=== PATIENT | female | born 1940 | race Hispanic/Latino ===

== ENCOUNTER 2019-07-11 17:17 | Inpatient (IN) | payer OTHER ==
[~2019-07-11] VITALS: Ht 154.9 cm; Wt 61.0 kg
[~2019-07-11 17:17] MED LIST: ALENDRONATE SOD70 MG PO; AMLODIPINE PO; ARICEPT5 MG PO; IBUPROFEN400 MG PO; LEVOTHYROXINE PO; LEVOTHYROXINE25 MCG PO; LISINOPRIL PO; LISINOPRIL40 MG PO; LOVASTATIN20 MG PO; OMEPRAZOLE40 MG PO
--- OUTSIDE RECORDS SUMMARY | 2019-07-11 17:20 | XMS REPORT ---
Author Author [facility] Address Unknown Phone Unavailable Care Team Providers Care Soda Fountain Operator Name Role Phone HORTENSIA Lance ERICA Unavailable Unavailable Problems This patient has no known problems. Allergies, Adverse Reactions, Alerts This patient has no known allergies or adverse reactions. Medications This patient has no known medications. Results Test Description Test Time Test Comments Text Results Atomic Results Result Comments CT ABDOMEN/PELVIS W [place] [id number] [place] [address] Patient Name: JIMBO RODRIGUEZ MR #: [id number] : 1940 Age/Sex: 76/F Req #: [id number] Adm Physician: Ordered by: YUN RAUSCH Report #: [id number] Location: ER Room/Bed: Procedure: [id number] CT/CT ABDOMEN/PELVIS W Exam Date: 07/02/17 Exam Time: 1640 REPORT STATUS: Signed EXAM: CT Abdomen and Pelvis WITH contrast INDICATION: Blood in stool, vomiting COMPARISON: None. TECHNIQUE: Abdomen and pelvis were scanned utilizing a multidetector helical scanner from the lung base to the pubic symphysis after administration of IV contrast. Coronal and sagittal reformations were obtained. Routine protocol was performed. Scan was performed when during portal venous phase. IV CONTRAST: 100 mL of Isovue-370 ORAL CONTRAST: Gastrografin RADIATION DOSE: Total DLP: 533.8 mGy*cm Estimated effective dose: (DLP x 0.015 x size factor) mSv COMPLICATIONS: None FINDINGS: LINES and TUBES: None. LOWER THORAX: The visualized lung bases are clear. Calcifications of the mitral annulus. Linear hypodensity within the left ventricle apex suggestive of prior myocardial injury. HEPATOBILIARY: Stable few 4 to 7 mm dense cystic lesions throughout the liver . No biliary ductal dilation. GALLBLADDER: Surgically absent. SPLEEN: No splenomegaly. PANCREAS: No focal masses or ductal dilatation. ADRENALS: No adrenal nodules KIDNEYS/URETERS: Kidneys enhance symmetrically. No hydronephrosis. No cystic or solid mass lesions. No stones. GI TRACT: Limited evaluation of the bowel due to motion artifact. Extensive diverticulosis of the sigmoid colon without surrounding fat stranding, better seen on coronal view. No bowel dilatation or obstruction The rectum contains large amount of fecal material and appears distended measuring 7.6 cm in transverse diameter and associated with mild circumferential wall thickening. PELVIC ORGANS/BLADDER: Unremarkable. LYMPH NODES: No lymphadenopathy. VESSELS: Scattered atherosclerotic calcifications of the abdominal aorta. PERITONEUM / RETROPERITONEUM: No free air or fluid. BONES: Mild multilevel degenerative changes of the lumbar spine. SOFT TISSUES: Unremarkable. IMPRESSION: Large amount of retained feces in the rectum, which is mildly distended and associated with mild wall thickening suggestive of fecal impaction. Limited evaluation of the bowel due to motion artifact. Extensive diverticulosis of the sigmoid colon without surrounding fat stranding, better seen on coronal view, unchanged. No fluid collections or fat stranding in the peritoneal fat. Signed by: Dr. Caitie Caruso M.D. on 07/02/2017 6:30 PM Dictated By: CAITIE CARUSO MD 29 Transcribed By: ADALBERTO on 07/02/171829 COPY TO: YUN RAUSCH CHEST SINGLE (PORTABLE) [place] [address] Patient Name: JIMBO RODRIGUEZ MR #: [id number] : 1940 Age/Sex: 76/F Req #: [id number] Adm Physician: Ordered by: YUN RAUSCH Report #: [id number] Location: ER Room/Bed: Procedure: [id number] DX/CHEST SINGLE (PORTABLE) Exam Date: 07/02/17 Exam Time: 5 REPORT STATUS: Signed EXAMINATION: CHEST SINGLE (PORTABLE) INDICATION: COMPARISON: None FINDINGS: AP view TUBES and LINES: None. LUNGS: Lungs are well inflated. Lungs are clear. There is no evidence of pneumonia or pulmonary edema. PLEURA: No pleural effusion or pneumothorax. HEART AND MEDIASTINUM: Mild enlargement of the cardiac silhouette. Atherosclerotic calcifications of the aortic arch. BONES AND SOFT TISSUES: No acute osseous lesion. Soft tissues are unremarkable. UPPER ABDOMEN: No free air under the diaphragm. IMPRESSION: No acute thoracic abnormality. Signed by: Dr. Caitie Caruso M.D. on 07/02/2017 1:56 PM Dictated By: CAITIE CARUSO MD 135 Transcribed By: ADALBERTO on 07/02/17 1356 COPY TO: YUN RAUSCH
[2019-07-11 18:01] LABS: BASOPHILS % 0.2 % (0.0-1.0); EOSINOPHILS # (AUTO) 0.1 (0.0-0.4); EOSINOPHILS % 0.5 % (0.0-6.0); HEMATOCRIT 38.1 % (34.2-44.1); HEMOGLOBIN 12.9 g/dL (12.0-16.0); LYMPHOCYTES # (AUTO) 1.9 (1.0-3.2); LYMPHOCYTES % 20.6 % (18.0-39.1); MEAN CORPUSCULAR HGB CONC 33.9 g/dL (31-35); MEAN CORPUSCULAR VOLUME 88.6 fL (81-99); MONOCYTES # (AUTO) 0.8 (0.2-0.8); NEUTROPHILS # (AUTO) 6.5 (2.1-6.9); NEUTROPHILS % 69.5 % (38.7-80.0); PLATELET COUNT 316 x10e3/uL (140-360); RED CELL DISTRIBUTION WIDTH 13.4 % (11.7-14.4)
[2019-07-11 18:19] LABS: ALANINE AMINOTRANSFERASE 10 IU/L (0-55); ALBUMIN 3.2 g/dL (3.5-5.0); ALKALINE PHOSPHATASE 108 IU/L (40-150); ANION GAP 10.8 mmol/L (8-16); BLOOD UREA NITROGEN 8 mg/dL (7-26); BUN/CREATININE RATIO 10 (6-25); CARBON DIOXIDE 22 mmol/L (22-29); CHLORIDE 105 mmol/L (98-107); CREATININE, SERUM 0.78 mg/dL (0.57-1.11); EST GLOMERULAR FILTRATION RATE > 60 ML/MIN (60-); GLUCOSE 88 mg/dL (74-118); POTASSIUM 3.8 mmol/L (3.5-5.1); SODIUM 134 mmol/L (136-145)
--- NOTE | 2019-07-11 20:02 | Diagnostic Imaging Report ---
EXAM: CT Abdomen and Pelvis WITH contrast INDICATION: ^diarrhea ^[id number] ^1905 COMPARISON: CT abdomen pelvis 07/02/2017 TECHNIQUE: Abdomen and pelvis were scanned utilizing a multidetector helical scanner from the lung base to the pubic symphysis after administration of IV contrast. Coronal and sagittal reformations were obtained. Routine protocol was performed. Scan was performed when during portal venous phase. IV CONTRAST: 100 mL of Isovue-370 ORAL CONTRAST: Water RADIATION DOSE: Total DLP: 227 mGy*cm Estimated effective dose: (DLP x 0.015 x size factor) mSv COMPLICATIONS: None FINDINGS: LINES and TUBES: None. LOWER THORAX: The visualized lung bases are clear. Calcifications of the mitral annulus, unchanged. Linear hypodensity within the left ventricle apex suggestive of prior myocardial injury, unchanged. HEPATOBILIARY: Stable few 4 to 7 mm dense cystic lesions throughout the liver . No biliary ductal dilation. GALLBLADDER: Surgically absent. SPLEEN: No splenomegaly. PANCREAS: No focal masses or ductal dilatation. ADRENALS: No adrenal nodules KIDNEYS/URETERS: Kidneys enhance symmetrically. No hydronephrosis. No cystic or solid mass lesions. No stones. GI TRACT: Limited evaluation of the bowel due to motion artifact. Extensive diverticulosis of the sigmoid colon without surrounding fat stranding, better seen on coronal view. No bowel dilatation or obstruction. Worsening circumferential wall thickening of the rectum. PELVIC ORGANS/BLADDER: Severe distention of the urinary bladder is unchanged since prior exam. No calcified stones in the urinary bladder or ureters. There is mild prominence of the proximal left ureter, unchanged. LYMPH NODES: No lymphadenopathy. VESSELS: Scattered atherosclerotic calcifications of the abdominal aorta. PERITONEUM / RETROPERITONEUM: No free air or fluid. BONES: Mild multilevel degenerative changes of the lumbar spine. SOFT TISSUES: Unremarkable. IMPRESSION: Worsening circumferential wall thickening of the rectum may be inflammatory, infectious, or neoplastic. Recommend direct visualization. Unchanged diffuse diverticulosis of the sigmoid colon without diverticulitis. Signed by: Dr. [place] Caruso M.D. on 07/11/2019 7:59 PM
[2019-07-11 20:50] LABS: BILIRUBIN,URINE NEGATIVE (NEGATIVE); CLARITY,URINE CLEAR (CLEAR); COLOR,URINE YELLOW (YELLOW); KETONES,URINE NEGATIVE (NEGATIVE); LEUKOCYTE ESTERASE ,URINE SMALL (NEGATIVE); NITRITE,URINE NEGATIVE (NEGATIVE); PROTEIN,URINE DIPSTICK NEGATIVE (NEGATIVE); URINE UROBILINOGEN 0.2 mg/dL (0.2 - 1)
[2019-07-11] MEDS ORDERED: LEVOFLOXACIN 500MG/D5W 100ML IV SCH (21:00)
[2019-07-11] MEDS ORDERED: ONDANSETRON HCL INJ 2MG/ML 2ML 2 MG/ML VIAL IV PRN (21:00)
[2019-07-11 21:04] LABS: WBC,URINE (MAN) 0-5 /HPF (0-5)
[2019-07-11] MEDS ORDERED: IOPAMIDOL 370 MG/ML 200 ML INFUS..BTL INJ ONE (21:07)
[2019-07-11] MEDS ORDERED: SODIUM CHLORIDE 0.9% 50ML 50 ML ONE (21:07)
[2019-07-11] MEDS: SODIUM CHLORIDE 0.9% 1000ML 1,000 ML IV SCH (23:00)
[2019-07-11] MEDS: METRONIDAZOLE 500MG/NS 100ML 100 ML IV SCH (23:00)
--- NOTE | 2019-07-11 23:55 | NUR ---
received pt from ER to room 206, pt is AAOx2, family at bedside and to stay the night with pt, no resp distress, no c/o pain/discomfort, pt can ambulate with stand by assist, bed in lowest and locked position, bed alarm on and call light in reach
[2019-07-12] VITALS (10 sets, daily range): BP systolic 143–159; BP diastolic 62–86
[2019-07-12] MEDS ORDERED: BISACODYL 5 MG TAB EC PO ONE ×3 (03:30→04:30)
[2019-07-12] MEDS: LEVOFLOXACIN 500MG/D5W 100ML 100 ML IV SCH ×2 (03:39→22:00)
[2019-07-12] MEDS: METRONIDAZOLE 500MG/NS 100ML 100 ML IV SCH ×4 (04:35→20:50)
[2019-07-12] MEDS ORDERED: CITRATE OF MAGNESIA 300ML BOTTLE PO ONE ×3 (05:00→10:30)
[2019-07-12 05:27] LABS: BASOPHILS % 0.4 % (0.0-1.0); EOSINOPHILS # (AUTO) 0.1 (0.0-0.4); EOSINOPHILS % 0.8 % (0.0-6.0); HEMATOCRIT 40.2 % (34.2-44.1); HEMOGLOBIN 13.2 g/dL (12.0-16.0); LYMPHOCYTES # (AUTO) 1.8 (1.0-3.2); LYMPHOCYTES % 23.3 % (18.0-39.1); MEAN CORPUSCULAR HEMOGLOBIN 29.3 pg (28-32); MEAN CORPUSCULAR HGB CONC 32.8 g/dL (31-35); MEAN CORPUSCULAR VOLUME 89.3 fL (81-99); MONOCYTES # (AUTO) 0.6 (0.2-0.8); MONOCYTES % 7.4 % (4.4-11.3); NEUTROPHILS # (AUTO) 5.3 (2.1-6.9); NEUTROPHILS % 67.7 % (38.7-80.0); PLATELET COUNT 287 x10e3/uL (140-360); RED CELL DISTRIBUTION WIDTH 13.3 % (11.7-14.4)
[2019-07-12 05:54] LABS: ALANINE AMINOTRANSFERASE 11 IU/L (0-55); ALBUMIN/GLOBULIN RATIO 0.9 (0.8-2.0); ALKALINE PHOSPHATASE 108 IU/L (40-150); ANION GAP 11.3 mmol/L (8-16); BLOOD UREA NITROGEN 6 mg/dL (7-26); BUN/CREATININE RATIO 8 (6-25); CARBON DIOXIDE 21 mmol/L (22-29); CHLORIDE 111 mmol/L (98-107); CREATININE, SERUM 0.71 mg/dL (0.57-1.11); EST GLOMERULAR FILTRATION RATE > 60 ML/MIN (60-); GLUCOSE 90 mg/dL (74-118); POTASSIUM 4.3 mmol/L (3.5-5.1); SODIUM 139 mmol/L (136-145)
[2019-07-12] MEDS: PANTOPRAZOLE 40 MG 10ML VIAL IV SCH (08:47)
--- NOTE | 2019-07-12 09:36 | NUR ---
Patient up in bed, had 3 BMs which is watery green, still drinking mag citrate, grand daughter at bed side
[2019-07-12] MEDS: SODIUM CHLORIDE 0.9% 1000ML 1,000 ML IV SCH ×2 (11:56→23:34)
[2019-07-12] MEDS ORDERED: LIDOCAINE HCL 2% LOCAL INJ 5 ML SDV VIAL INJ ONE (15:03)
[2019-07-12] MEDS ORDERED: PROPOFOL IV EMULSION 10 MG/ML 50 ML VIAL ONE (15:03)
--- NOTE | 2019-07-12 16:22 | NUR ---
Enema (tap water) X1 given, patient had X2 watery BMs
[2019-07-12] MEDS: ENOXAPARIN 30 MG/0.3 ML SYR SC SCH (17:00)
--- NOTE | 2019-07-12 17:10 | NUR ---
patient off the unit for Colonoscopy accompanied with her daughter. Stable
[2019-07-12] MEDS ORDERED: HYOSCYAMINE 0.125 MG TAB ONE (17:47)
--- NOTE | 2019-07-12 19:58 | NUR ---
Patient back to floor from colonoscopy procedure accompanied by daughter. AAO x 3. No complaints of pain. No signs of respiratory distress. Fall precautions implemented. Patient / daughter instructed to call for assistance when needed. Call light within reach.
[2019-07-12] MEDS: SIMVASTATIN 20 MG TAB PO SCH (21:12)
--- NOTE | 2019-07-12 22:01 | History and Physical ---
CHIEF COMPLAINT: Diarrhea and abdominal pain. HISTORY OF PRESENT ILLNESS: This is a 78-year-old female, has baseline Alzheimer's dementia according to the family, history of hypertension, hyperlipidemia, hypothyroidism, presents to the emergency room with complaints of abdominal pain and diarrhea, ongoing for the last 1 week. The patient's family reports that she also had constipation sometime last week, but resolved and then all of a sudden started having significant amount of diarrhea. Unable to attribute that to any stool softeners according to the family. There are no reports of any fever at home, any blood in the stool, but describes more as a loose watery stool. Denies any chest pain or any palpitations. The patient is seen and evaluated at bedside on the medical floor. She is currently doing well with no other complaints. She is scheduled for colonoscopy later today. REVIEW OF SYSTEMS: Pertinent positives: Diarrhea and abdominal pain. Pertinent negatives: Denies any chest pain, palpitation, dysuria, hematuria, frequency, urgency, lightheadedness, dizziness, cough, congestion, fever, or any other complaints. The rest of 14-point review of systems are reviewed with the patient and are negative. ALLERGIES: ACETAMINOPHEN AND CODEINE. HOME MEDICATIONS: Takes lisinopril 40 mg daily, lovastatin 20 mg daily, Aricept 5 mg daily, levothyroxine 25 mcg, omeprazole 40 mg daily. PAST MEDICAL HISTORY: Dementia, hypertension, acid reflux, hyperlipidemia. PAST SURGICAL HISTORY: None. FAMILY HISTORY: Hypertension and diabetes. SOCIAL HISTORY: No drugs. No alcohol. Does not smoke. Good social support. PHYSICAL EXAMINATION: VITAL SIGNS: Temperature is 96.6, pulse 70, respirations 16, blood pressure 150/62, pulse ox 96% on room air. GENERAL: No acute distress. Alert and oriented x3. Cooperative on examination. HEENT: Head is normocephalic and atraumatic. Eyes; pupils are equal, round, and reactive to light bilaterally. Extraocular movements are intact. Throat; no evidence of erythema or exudates in the posterior pharynx. Has poor dentition. NECK: Supple. Good range of motion throughout. PULMONARY: Clear to auscultation bilaterally. No wheezing, no rales, no rhonchi, and no crackles appreciated. CARDIOVASCULAR: Positive S1 and S2. No murmurs, rubs, or gallops appreciated. GI: Abdomen is soft, nondistended, and nontender to palpation. Bowel sounds present. MUSCULOSKELETAL: Strength is 5/5 throughout. No evidence of any muscle deficits on examination. No weakness appreciated. NEUROLOGIC: Cranial nerves II through XII grossly intact. No evidence of any neurological deficits on exam. SKIN: Intact. Warm to touch. Good cap refill. PSYCHIATRIC: Normal affect and mood. EXTREMITIES: No edema. Good range of motion throughout. LAB FINDINGS: Show white count 7.8, hemoglobin 13, hematocrit 40, and platelets of 287. Chemistry; sodium 139, potassium 4.3, chloride 111, bicarb 21, anion gap is 11, BUN is 6, creatinine is 0.71, glucose 90, calcium 10, magnesium 1.9. LFTs within normal range. Albumin was 3. Urinalysis was negative. MICROBIOLOGY: Urine cultures were found to be no growth to date. IMAGING STUDIES: CT abdomen and pelvis shows worsening wall thickening of the rectum, may be inflammatory, infectious, or neoplastic. GI was consulted. Unchanged diffuse diverticulosis of the sigmoid colon without diverticulitis. IMPRESSION: 1. Abdominal pain with associated diarrhea. 2. Proctitis. 3. Dementia. 4. Hypertension. 5. Hypothyroidism. PLAN: Continue with IV antibiotics, Flagyl and Levaquin. Continue with IV fluids. GI consult is scheduled for EGD later today. She has been given several stool softeners for colonoscopy later today. Resume same home medications. Get a.m. labs. Follow with GI recommendations. Discussed plan of care with nursing staff. MD FLORENTIN Helm/LILY /[id number]
--- NOTE | 2019-07-12 22:50 | NUR ---
Patient restless and trying to pull out IV. Daughter at bedside. Dr.J. Montes notified. New order received for Seroquel 12.5 mg x 1 PO.
[2019-07-12] MEDS ORDERED: QUETIAPINE FUMARATE 25 MG TAB PO ONE (23:00)
[2019-07-13] VITALS (8 sets, daily range): BP systolic 136–163; BP diastolic 53–69
--- NOTE | 2019-07-13 01:21 | Operative Report ---
DATE OF PROCEDURE: 07/12/2019 SURGEON: Aquilino Wilks MD PROCEDURE: Colonoscopy with polypectomy and biopsies. INDICATIONS FOR COLONOSCOPY: Diarrhea, thickened rectum on CT scan of the abdomen. MEDICATIONS: The patient was done under MAC, please see anesthesiologist's note. PROCEDURE IN DETAIL: With the patient in left lateral decubitus position, a flexible fiberoptic Olympus colonoscope was inserted into the rectum with ease and advanced all the way to the cecum. It was then withdrawn slowly. Mucosa overlying the cecum and ascending colon grossly appeared to be within normal limits. An additional polyp was removed per the cold biopsy forceps from the transverse colon. Diverticular disease was scattered, but more prominent in the left colon. There were some mild patchy inflammatory changes noted in the rectum and biopsies were obtained. The scope was then retroflexed into the distal rectum and hypertrophied and papillae were noted. The scope was then straightened out, it was subsequently withdrawn after securing an adequate stool specimen that was sent for the appropriate stool studies. The patient tolerated the procedure well. IMPRESSION: 1. Diverticulosis. 2. Transverse colon polyps x2, one snared and one removed per the cold biopsy forceps. 3. Proctitis, mild, biopsied. PLAN: Followup histology. Follow up stool studies. Aquilino Wilks MD [facility]/MODL /[id number] cc: Leslee Montes MD
[2019-07-13] MEDS: METRONIDAZOLE 500MG/NS 100ML 100 ML IV SCH ×4 (03:37→20:54)
[2019-07-13 06:15] LABS: BASOPHILS % 0.6 % (0.0-1.0); EOSINOPHILS # (AUTO) 0.1 (0.0-0.4); EOSINOPHILS % 1.9 % (0.0-6.0); HEMATOCRIT 36.9 % (34.2-44.1); LYMPHOCYTES # (AUTO) 1.7 (1.0-3.2); LYMPHOCYTES % 32.2 % (18.0-39.1); MEAN CORPUSCULAR HEMOGLOBIN 29.5 pg (28-32); MEAN CORPUSCULAR HGB CONC 32.5 g/dL (31-35); MEAN CORPUSCULAR VOLUME 90.7 fL (81-99); MONOCYTES # (AUTO) 0.5 (0.2-0.8); MONOCYTES % 8.6 % (4.4-11.3); NEUTROPHILS # (AUTO) 2.9 (2.1-6.9); NEUTROPHILS % 56.3 % (38.7-80.0); PLATELET COUNT 301 x10e3/uL (140-360); RED BLOOD COUNT 4.07 x10e6/uL (3.6-5.1); RED CELL DISTRIBUTION WIDTH 13.3 % (11.7-14.4)
[2019-07-13 06:39] LABS: BLOOD UREA NITROGEN 5 mg/dL (7-26); BUN/CREATININE RATIO 8 (6-25); CALCIUM 9.6 mg/dL (8.4-10.2); CARBON DIOXIDE 20 mmol/L (22-29); CHLORIDE 114 mmol/L (98-107); CREATININE, SERUM 0.63 mg/dL (0.57-1.11); EST GLOMERULAR FILTRATION RATE > 60 ML/MIN (60-); GLUCOSE 78 mg/dL (74-118); SODIUM 141 mmol/L (136-145)
--- NOTE | 2019-07-13 07:00 | NUR ---
Walking rounds done. Shift report given to oncoming nurse.
[2019-07-13] MEDS: PANTOPRAZOLE 40 MG 10ML VIAL IV SCH (09:02)
[2019-07-13] MEDS: LISINOPRIL 20 MG TAB PO SCH (09:21)
--- NOTE | 2019-07-13 09:41 | NUR ---
patient resting in bed, Alert with no distress, bed alarm ON. Daughter at bed side
[2019-07-13] MEDS: SODIUM CHLORIDE 0.9% 1000ML 1,000 ML IV SCH (14:56)
[2019-07-13] MEDS: ENOXAPARIN 30 MG/0.3 ML SYR SC SCH (16:52)
[2019-07-13] MEDS: POTASSIUM CHLORIDE 20 MEQ TAB CR PO SCH (16:52)
--- NOTE | 2019-07-13 19:26 | NUR ---
Patient received sitting up in bed. AAO x 3. Daughters at bedside. No acute distress noted. IVF infusing at 75 cc/hr. Call light within reach.
[2019-07-13] MEDS: SIMVASTATIN 20 MG TAB PO SCH (20:54)
[2019-07-13] MEDS: LEVOFLOXACIN 500MG/D5W 100ML 100 ML IV SCH (22:00)
[2019-07-14] VITALS: BP 136/61
[2019-07-14] MEDS: SODIUM CHLORIDE 0.9% 1000ML 1,000 ML IV SCH (02:14)
[2019-07-14] MEDS: METRONIDAZOLE 500MG/NS 100ML 100 ML IV SCH ×2 (02:24→09:02)
[2019-07-14 04:00] VITALS: BP 159/76
[2019-07-14 05:15] LABS: BASOPHILS % 0.6 % (0.0-1.0); EOSINOPHILS # (AUTO) 0.1 (0.0-0.4); EOSINOPHILS % 1.3 % (0.0-6.0); HEMATOCRIT 36.4 % (34.2-44.1); HEMOGLOBIN 12.3 g/dL (12.0-16.0); LYMPHOCYTES # (AUTO) 1.8 (1.0-3.2); LYMPHOCYTES % 33.6 % (18.0-39.1); MEAN CORPUSCULAR HEMOGLOBIN 29.8 pg (28-32); MEAN CORPUSCULAR HGB CONC 33.8 g/dL (31-35); MEAN CORPUSCULAR VOLUME 88.1 fL (81-99); MONOCYTES # (AUTO) 0.5 (0.2-0.8); MONOCYTES % 8.7 % (4.4-11.3); NEUTROPHILS % 55.2 % (38.7-80.0); PLATELET COUNT 339 x10e3/uL (140-360); RED BLOOD COUNT 4.13 x10e6/uL (3.6-5.1); RED CELL DISTRIBUTION WIDTH 13.4 % (11.7-14.4)
[2019-07-14 05:27] LABS: ANION GAP 8.9 mmol/L (8-16); BLOOD UREA NITROGEN 8 mg/dL (7-26); BUN/CREATININE RATIO 13 (6-25); CALCIUM 9.5 mg/dL (8.4-10.2); CARBON DIOXIDE 22 mmol/L (22-29); CHLORIDE 111 mmol/L (98-107); CREATININE, SERUM 0.63 mg/dL (0.57-1.11); EST GLOMERULAR FILTRATION RATE > 60 ML/MIN (60-); GLUCOSE 94 mg/dL (74-118); POTASSIUM 3.9 mmol/L (3.5-5.1); SODIUM 138 mmol/L (136-145)
--- NOTE | 2019-07-14 07:00 | NUR ---
Patient resting comfortably. Shift report given to oncoming nurse.
--- NOTE | 2019-07-14 07:00 | NUR ---
BEDSIDE SHIFT REPORT RECEIVED FROM THE NATURAL RESOURCE SPECIALIST RN. EDUCATED PT ABOUT FALL PRECAUTIONS. CALL LIGHT WITH IN EASY REACH. INSTRUCTED PT TO CALL FOR ANY NEEDS. PT DENIES NEEDS AT THIS TIME
[2019-07-14 08:35] VITALS: BP 146/66
[2019-07-14] MEDS: PANTOPRAZOLE 40 MG 10ML VIAL IV SCH (09:02)
[2019-07-14] MEDS: LISINOPRIL 20 MG TAB PO SCH (09:06)
--- NOTE | 2019-07-14 11:00 | NUR ---
IMM letter delivered and explained to pt and family at bedside. They verbalized understanding. Signed copy placed in chart. Copy to pt.
--- NOTE | 2019-07-14 11:15 | NUR ---
REGULAR DIET FOR PT PER DR. Austyn SPARKS.
--- NOTE | 2019-07-14 11:55 | NUR ---
DR. WALLS AT BEDSIDE. OKAY TO D/C PT AFTER CLEARANCE FROM DR. Austyn SPARKS.
--- NOTE | 2019-07-14 12:07 | NUR ---
GERRY TO D/C PT PER DR. Austyn SPARKS
[2019-07-14] MEDS ORDERED: CIPRO500 MG PO (12:29)
[2019-07-14] MEDS ORDERED: FLAGYL250 MG PO (12:30)
[2019-07-14 12:36] VITALS: BP 179/80
--- NOTE | 2019-07-14 12:45 | NUR ---
PATIENT DISCHARGED HOME SAFELY WITH FAMILY. PT ESCORTED VIA WHEEL CHAIR TO THE FRONT ENTRANCE. RH 22 G IV REMOVED. TIP INTACT. NO BLEEDING NOTED. DRESSING APPLIED. PT DENIED FURTHER NEEDS.
--- NOTE | 2019-07-15 07:58 | Discharge Summary ---
FINAL DISCHARGE DIAGNOSES: 1. Abdominal pain secondary to proctitis, status post colonoscopy performed. 2. Diarrhea, resolved. 3. Dementia. 4. Hypertension. 5. Hypothyroidism. CONSULTANTS: GI. PHYSICAL EXAMINATION: VITAL SIGNS: Temperature is 97.3, pulse 61, respiratory rate is 18, blood pressure 146/66, pulse ox 95% on room air. LAB FINDINGS: Show white count 5.3, hemoglobin is 12.3, hematocrit 36, and platelets of 339. Chemistry; sodium 138, potassium 3.9, chloride 111, bicarb 22, anion gap of 8.9, BUN is 8, and creatinine 0.63, glucose 94, calcium 9.5, magnesium 1.9. LFTs are within normal range. Albumin was 3. Urinalysis was negative. MICROBIOLOGY: Urine cultures were negative. IMAGING STUDIES: CT abdomen and pelvis shows worsening circumferential wall thickening of the rectum, may be inflammatory, infectious and neoplastic. EGD and colonoscopy were performed. Unchanged diffuse diverticulosis of the sigmoid colon without diverticulitis. HOSPITAL COURSE: This is a 78-year-old female with baseline dementia, comes into the emergency room with complaints of abdominal pain, nausea, vomiting, and underlying diarrhea, ongoing for the last one week. The patient was admitted for further evaluation and management. She was on IV antibiotics, IV fluids, and pain control. GI was consulted. The patient underwent status post colonoscopy on 07/12/2019. Impression: Diverticulosis, transverse colon polyps x2, one snared and one removed per cold biopsy forceps, and underlying proctitis that was mild, that was biopsied. The patient did well postprocedurally with no issues. She is to follow up as an outpatient with AYSE Jonas for biopsy results. I discussed this with the patient and her family at bedside with the nursing present. They verbalized understanding. In terms of her diarrhea, it all resolved. She was afebrile, white count normal prior to being discharged and she was tolerating diet well and there was no reports of any abdominal pain. The patient was cleared for discharge home by GI. The patient is stable, back to normal baseline. On the day of discharge, vital signs were stable, labs reviewed and stable. The patient was seen and evaluated, examined thoroughly on the day of discharge. No other complaints. The patient verbalized understanding and the family verbalized understanding and agrees to plan of care to follow up as an outpatient with the PCP in 1 week and GI specialist in the next 1 to 2 weeks to get the biopsy results of the polyps as well as the biopsy of the actual proctitis area. Family verbalized understanding and agreed with plan of care as discussed and described above. She will be discharged on oral antibiotics as well. MEDICATIONS: See med reconciliation form. DISPOSITION: To home. CONDITION: Stable. DIET: Heart healthy. In the event of any worsening symptoms, the patient advised to come back to the emergency room for further evaluation. Discharge summary took greater than 35 minutes. MD FLORENTIN Helm/MODL /[id number]
== END 2019-07-14 12:52 | disposition home or self-care (01) | DRG 395 ==
LOC: ER 17:17 → ERHOLD 21:02 → MED/SURG2 23:05
PROVIDERS: ADMIT Internal Medicine; ATTEND Internal Medicine
PROC: 0DBP8ZX Excision of Rectum, Via Natural or Artificial Opening Endoscopic, Diagnostic (ICD-10-PCS; principal; 2019-07-12 17:47)
PROC: 0DBL8ZX Excision of Transverse Colon, Via Natural or Artificial Opening Endoscopic, Diagnostic (ICD-10-PCS; 2019-07-12 17:47)
DX: K62.89 Other specified diseases of anus and rectum (principal); R19.7 Diarrhea, unspecified; F03.90 Unspecified dementia, unspecified severity, without behavioral disturbance, psychotic disturbance, mood disturbance, and anxiety; I10 Essential (primary) hypertension; E03.9 Hypothyroidism, unspecified; K57.30 Diverticulosis of large intestine without perforation or abscess without bleeding; K63.5 Polyp of colon
CPT/HCPCS: 36415; 45380; 45385; 74177; 80048; 80053; 81001; 82948; 83735; 85025; 87086; 88305; 99284; J1650; J1956; J2001; J7030; Q9967